=== PATIENT | female | born 1995 | race African-American/Black ===

== ENCOUNTER → 2025-08-07 11:38 | Outpatient (CLI) | payer OTHER, SELFPAY ==
[2025-08-07 13:56] LABS: Hematocrit 33.8 % (36-46); Hemoglobin 11.7 g/dL (12.0-16.0)
[2025-08-07 14:20] LABS: GTT (PREG) 1 Hour PP 50gm Dose 99 mg/dL (76-139)
== END ==
PROVIDERS: Referring Provider Family Medicine; Visit Provider Family Medicine
DX: Z34.80 Encounter for supervision of other normal pregnancy, unspecified trimester (principal)
CPT/HCPCS: 36415; 82950; 85014; 85018; 86850; 86900; 86901

== ENCOUNTER → 2025-09-20 14:14 | Outpatient (CLI) | payer OTHER, SELFPAY ==
--- NOTE | 2025-09-20 14:15 | DI.US.S_ITS ---
PROCEDURE: US OB LIMITED INDICATIONS: (EFW, ROEL) for polyhydramnios OUTSIDE/PRIOR DATING DATA: Working DESHAWN: 10/25/2025 TECHNIQUE: Real-time scanning was performed of the fetus, with image documentation and biometric measurements. Biophysical profile was also obtained. Endovaginal scanning: Not performed COMPARISON: None. FINDINGS: General: A single living intrauterine gestation is present. Presentation: Vertex. Placenta: Placental position is fundal , without previa. Amniotic fluid index: 4.7 cm, normal range is 5-24 cm. Single deepest vertical pocket is 2.4 cm. heart rate: 127 through 140 beats per minute. Maternal cervical canal: 3.0 cm long. Normal lower limit is 2.5 cm. biometrics: Biparietal diameter: 8.9 cm, 36 weeks 0 days Head circumference: 32.8 cm, 37 weeks 2 days Abdominal circumference: 32.5 cm, 36 weeks 3 days Femur length: 6.6 cm, 33 weeks 6 days Clinically estimated gestational age: 35 weeks 0 days Composite gestational age from present scan: 35 weeks 6 days Estimated weight and percentile: 2773 g, 70 percentile Biophysical profile: Tone: 0 points. Movement: 2 points. Respiration: 2 points. Largest pocket of fluid: 2 points. Umbilical artery Doppler: Not requested IMPRESSION: Single living intrauterine at 35 weeks 0 days, DESHAWN of 10/25/2025. Estimated weight of 2773 g, 70 percentile. ROEL of 4.7 cm, deepest pocket of 2.4 cm. BPP 6 of 8. Results transmitted to ordering provider at time of exam. We strive to produce accurate, complete, and clear reports of imaging services. To assist us in improving patient care, this report was composed using standard report templates and voice recognition software. Therefore, it may contain abnormal punctuation, insertions and/or omissions. Occasional wrong-word or sound-alike substitutions may occur. Though we review the report and make efforts to correct it, we do recommend that the report be read carefully in proper context to recognize any text inaccuracies. Dictated by: Wallace Archer M.D. on 09/21/2025 at 10:15 Approved by: Wallace Archer M.D. on 09/21/2025 at 10:17
== END ==
PROVIDERS: Referring Provider Family Medicine; Visit Provider Family Medicine
DX: O40.3XX0 Polyhydramnios, third trimester, not applicable or unspecified (principal); Z3A.35 35 weeks gestation of pregnancy
CPT/HCPCS: 76815; 76819

== ENCOUNTER 2025-09-20 15:49 | Outpatient (CLI) | payer OTHER, SELFPAY ==
--- NOTE | 2025-09-20 17:36 | PM.OBTRLD ---
Visit Information Visit Information Date of evaluation: 09/20/25 Primary OB Provider: Jelani Jacob Reason for Evaluation: Yes non-stress test non-stress test reason: other (low ROEL) Comments/Additional reasons for admission: 30yo at [place] 35+0 by 1st tri US. Uncomplicated course aside from report of polyhydramnios prior to transferring care to our facility. 1h GTT normal x2. Was at US for ROEL and growth US, ROEL noted to be 4.7cm by tech. BPP was then performed with score 4/8 (0 points for fluid and tone). Sent here for NST to determine overall BPP and plan of care. Endorses vigorous movement. Some question of leakage of fluid over past few days. No vaginal bleeding or cramping/contractions. CFDNA ([facility]) at previous facility, low-risk male. FORMERLY [facility] Medical History (Updated 09/20/25 @ 17:53 by Jelani Jacob MD) Lumbar stress fracture Surgical History (Updated 08/01/25 @ 10:40 by Chhaya Santos RN) [place] teeth extracted H/O oral surgery (~2011) S/P ACL repair (~2013) Family History (Updated 08/01/25 @ 10:50 by Chhaya Santos RN) Mother Thyroid disease Hypertension Sleep apnea Father Sleep apnea Grandmother Hypertension Lupus Diabetes mellitus Grandmother Hypertension Aunt Breast cancer Family/Other Breast cancer Social History marital status: number of children: 1 household members: spouse and children lives independently: Yes caregiver/support person: Yes [facility] pets and animals: No education level: college (bachelor's degree) occupational status: unemployed brooks/religious: Congregational special brooks needs: No travel history: recent ([place]) seatbelt use: always helmet use: Yes water heater temp set < 120 deg: No working smoke detector in home: Yes fire extinguisher in home: Yes carbon monox detector in home: Yes firearms in home: No do you feel safe at home: Yes Tobacco: How many years used: 3 second hand exposure: Yes ( vapes outside) alcohol intake: former (rarely when not ) substance use type: does not use during the past year weight has: other (back to pre- weight at conception) well-balanced diet: rarely or never daily servings fruits/ve-1 (1-2) caffeine: Yes (minimal) Type(s) of exercise: walking and weight lifting frequency: 1-2 times per week (2-3) Review of Systems Review of Systems ROS: Yes All systems reviewed with the patient and are negative except as otherwise documented Exam Narrative Exam Narrative: General: Well-nourished, no distress HEENT: NC/AT, EOMI, moist mucous membranes CV: RRR, normal S1 S2, no m/g/r Resp: CTAB Abd: Gravid, soft, NTND, +BS Ext: Full ROM, no edema Skin: No rash or lesions Neuro: A&O x3, normal tone, no focal deficits Objective Imaging US OB: My impression: SIUP in cephalic position Placenta in fundal position BPD 36w0d HC 37w2d AC 36w3d FL 33w6d EFW 2773 g (6lb 2oz), EFW% 70%ile Clinical age 35w0d US age 35w6d Q1 2.24 cm Q2 2.48 cm Q3 0.00 cm Q4 0.00 cm Total 4.7 cm FHR 140 bpm Evaluation Evaluation Baseline heart rate: 130 Variability: Moderate (6-25) monitor accelerations: Present Monitor Decelerations: Absent Category of Tracing: Reactive Status: Category l Non-invasive Membranes Rupture Test: negative Diagnosis, Plan/Disposition Final Diagnosis (1) Oligohydramnios: Status: Acute (2) 35 weeks gestation of : Status: Acute Plan/Disposition Plan: 30-year-old [place] 35+0 weeks. BPP 6/10 equivocal with 2 points off each for fluid and tone. SDP > 2cm, however 2 quadrants without appreciable fluid. Doubt ROM as Amnisure negative. NST reactive and mother feels baby moving normally, movements in maternal abdomen visible to naked eye. We will repeat BP in 24 hours due to combination of oligohydramnios and equivocal BPP score concerning for increased risk of demise ( within 7 days). Management will be based upon the repeat results. If the BPP of 6/10 persists, delivery will be indicated given late gestational age is sufficiently advanced to sustain extrauterine life. If the BPP score reverts to normal (>=8/10) then will continue routine clinical surveillance as appropriate for idiopathic oligohydramnios. Patient instructed hydrate vigorously and return tomorrow for repeat evaluation. Additional return precautions provided for any signs of labor or distress. OB Disposition: home
== END 2025-09-20 17:35 | disposition home or self-care (01) ==
LOC: LABOR 15:52 → OB 09-23 08:37
PROVIDERS: Referring Provider Family Medicine; Visit Provider Family Medicine
DX: O41.03X0 Oligohydramnios, third trimester, not applicable or unspecified (principal); Z3A.35 35 weeks gestation of pregnancy
CPT/HCPCS: 59025; 59050; 76815; 76819; 84112; G0378; G0379

== ENCOUNTER 2025-09-21 13:16 | Outpatient (CLI) | payer OTHER, SELFPAY ==
--- NOTE | 2025-09-21 13:21 | DI.US.S_ITS ---
PROCEDURE: US OB BIOPHYSICAL PROFILE INDICATIONS: low ROEL OUTSIDE/PRIOR DATING DATA: Last menstrual period (LMP): Not reported. LMP-based estimated date of delivery (DESHAWN): 10/25/2025 First dating scan (date and location): 09/20/2025. Estimated date of delivery (DESHAWN) from first dating scan: 10/25/2025 TECHNIQUE: Real-time scanning was performed of the fetus for biophysical profile, with image documentation. Color and pulse Doppler interrogation was also performed of the umbilical artery near its insertion into the placenta. Endovaginal scanning: Not performed COMPARISON: None. FINDINGS: General: A single living intrauterine gestation is present. Presentation: Vertex. Placenta: Placental position is frontal , without previa. Amniotic fluid index: 11 cm, normal range is 5-24 cm. Single deepest vertical pocket is 6.1 cm. heart rate: 135 beats per minute. Maternal cervical canal: Not measured cm long. Biophysical profile: Tone: 2 points. Movement: 2 points. Respiration: 2 points. Largest pocket of fluid: 2 points. IMPRESSION: Live intrauterine with a biophysical profile score of 8 ROEL of 11 cm with single deepest pocket measuring 6.1 cm We strive to produce accurate, complete, and clear reports of imaging services. To assist us in improving patient care, this report was composed using standard report templates and voice recognition software. Therefore, it may contain abnormal punctuation, insertions and/or omissions. Occasional wrong-word or sound-alike substitutions may occur. Though we review the report and make efforts to correct it, we do recommend that the report be read carefully in proper context to recognize any text inaccuracies. Dictated by: Allen Dempsey M.D. on 09/21/2025 at 13:05 Approved by: Allen Dempsey M.D. on 09/21/2025 at 13:09
--- NOTE | 2025-09-21 14:35 | PM.OBTRLD ---
Visit Information Visit Information Date of evaluation: 09/21/25 Primary OB Provider: Jelani Jacob Reason for Evaluation: Yes non-stress test non-stress test reason: other (low ROEL) Comments/Additional reasons for admission: 30yo at [place] 35+1 by 1st tri US. Uncomplicated course aside from report of polyhydramnios prior to transferring care to our facility. 1h GTT normal x2. ROEL noted to be 4.7cm during testing yesterday. BPP was then performed with score 6/10 (0 points for fluid and tone), with the caveat that mother felt normal movement. Repeat BPP indicated due to equivocal score in combination with oligohydramnios. Today patient endorses normal movement. Denies vaginal bleeding, leakage of fluid, contractions. [facility]LY [facility] Medical History (Updated 09/21/25 @ 14:41 by Jelani Jacob MD) Lumbar stress fracture Surgical History (Updated 08/01/25 @ 10:40 by Chhaya Santos RN) [place] teeth extracted H/O oral surgery (~2011) S/P ACL repair (~2013) Family History (Updated 08/01/25 @ 10:50 by Chhaya Santos RN) Mother Thyroid disease Hypertension Sleep apnea Father Sleep apnea Grandmother Hypertension Lupus Diabetes mellitus Grandmother Hypertension Aunt Breast cancer Family/Other Breast cancer Social History marital status: number of children: 1 household members: spouse and children lives independently: Yes caregiver/support person: Yes housing: [facility] pets and animals: No education level: college (bachelor's degree) occupational status: unemployed brooks/christianity: Yarsani special brooks needs: No travel history: recent ([place]) seatbelt use: always helmet use: Yes water heater temp set < 120 deg: No working smoke detector in home: Yes fire extinguisher in home: Yes carbon monox detector in home: Yes firearms in home: No do you feel safe at home: Yes Tobacco: How many years used: 3 second hand exposure: Yes ( vapes outside) alcohol intake: former (rarely when not ) substance use type: does not use during the past year weight has: other (back to pre- weight at conception) well-balanced diet: rarely or never daily servings fruits/ve-1 (1-2) caffeine: Yes (minimal) Type(s) of exercise: walking and weight lifting frequency: 1-2 times per week (2-3) Objective Imaging US OB: Radiologist's impression: US OB BIOPHYSICAL PROFILE INDICATIONS: low ROEL OUTSIDE/PRIOR DATING DATA: Last menstrual period (LMP): Not reported. LMP-based estimated date of delivery (DESHAWN): 10/25/2025 First dating scan (date and location): 09/20/2025. Estimated date of delivery (DESHAWN) from first dating scan: 10/25/2025 TECHNIQUE: Real-time scanning was performed of the fetus for biophysical profile, with image documentation. Color and pulse Doppler interrogation was also performed of the umbilical artery near its insertion into the placenta. Endovaginal scanning: Not performed COMPARISON: None. FINDINGS: General: A single living intrauterine gestation is present. Presentation: Vertex. Placenta: Placental position is frontal , without previa. Amniotic fluid index: 11 cm, normal range is 5-24 cm. Single deepest vertical pocket is 6.1 cm. heart rate: 135 beats per minute. Maternal cervical canal: Not measured cm long. Biophysical profile: Tone: 2 points. Movement: 2 points. Respiration: 2 points. Largest pocket of fluid: 2 points. IMPRESSION: Live intrauterine with a biophysical profile score of 8 ROEL of 11 cm with single deepest pocket measuring 6.1 cm We strive to produce accurate, complete, and clear reports of imaging services. To assist us in improving patient care, this report was composed using standard report templates and voice recognition software. Therefore, it may contain abnormal punctuation, insertions and/or omissions. Occasional wrong-word or sound-alike substitutions may occur. Though we review the report and make efforts to correct it, we do recommend that the report be read carefully in proper context to recognize any text inaccuracies. Dictated by: Allen Dempsey M.D. on 09/21/2025 at 13:05 Approved by: Allen Dempsey M.D. on 09/21/2025 at 13:09 Evaluation Evaluation Baseline heart rate: 130 Variability: Moderate (6-25) monitor accelerations: Present Monitor Decelerations: Absent Category of Tracing: Reactive Status: Category l Diagnosis, Plan/Disposition Final Diagnosis (1) 35 weeks gestation of : Status: Acute (2) Encounter for screening: Status: Acute Plan/Disposition Plan: 30-year-old [place] 35+1 weeks. NST reactive with category 1 strip. BPP 08/16 with ROEL 11cm reassuring for well-being. Follow-up this week for routine care. OB Disposition: home
== END 2025-09-21 14:35 | disposition home or self-care (01) ==
LOC: OB 09-23 08:38
PROVIDERS: Referring Provider Family Medicine; Visit Provider Family Medicine
DX: O41.03X0 Oligohydramnios, third trimester, not applicable or unspecified (principal); Z3A.35 35 weeks gestation of pregnancy
CPT/HCPCS: 59025; 76819; G0378; G0379

== ENCOUNTER → 2025-09-27 10:54 | Outpatient (CLI) | payer OTHER, SELFPAY ==
[2025-09-29 14:11] LABS: Strep Grp B PCR NEG for Grp B Strep
== END ==
PROVIDERS: Visit Provider Family Medicine
DX: Z34.93 Encounter for supervision of normal pregnancy, unspecified, third trimester (principal); Z3A.36 36 weeks gestation of pregnancy
CPT/HCPCS: 87653

== ENCOUNTER 2025-10-17 10:38 | Inpatient (IN) | payer OTHER, SELFPAY ==
[2025-10-17 12:04] LABS: Add Manual Diff / Slide Review NO; Hematocrit 35.3 % (36-46); Hemoglobin 12.4 g/dL (12.0-16.0); Lymphocytes Absolute Auto 1700 /uL (1100-4500); Mean Corpuscular HGB Conc 35.0 % (30-36); Mean Corpuscular Hemoglobin 31.6 PG (26-34); Mean Corpuscular Volume 90.3 fL (80-100); Platelet Count 161 X10^3/uL (150-400)
[2025-10-17 12:15] LABS: Alanine Aminotransferase 26 IU/L (<35); Albumin 3.5 g/dL (3.5-5.0); Albumin Globulin Ratio 1.1 (1.0-2.8); Alkaline Phosphatase 144 U/L (38-126); Blood Urea Nitrogen 6 mg/dL (7-17); Calcium 8.9 mg/dL (8.4-10.2); Carbon Dioxide 22 mmol/L (22-32); Chloride 107 mmol/L (98-107); Estimated Glomerular Filt Rate > 60 mL/min (>60); Globulin 3.1 g/dL (1.7-4.1); Glucose 89 mg/dL (70-99); HEMOLYSIS < 15 (0-50); Potassium 4.4 mmol/L (3.4-5.1); Sodium 136 mmol/L (137-145); Total Protein 6.6 g/dL (6.3-8.2)
[2025-10-17] MEDS: OXYTOCIN PREMIX 30 UNIT/500 ML PLAST..BAG 334 UNIT IV (12:20)
[2025-10-17] MEDS: LIDOCAINE 1% 20 ML INJ (12:20)
--- NOTE | 2025-10-17 13:12 | PM.OBHP.IH.1 ---
OB HPI Date/Time Date of admission: 10/17/25 History of Present Condition Chief complaint: NST DESHAWN Calculator Estimated Delivery Date Method Current WG Current Estimate 10/25/25 Manual 38w 6d Estimated Gestational Age (weeks): 38+6 : 2 Para: 1 Narrative: 30-year-old at [place] 38+6 weeks presenting for labor. Reports painful contractions starting at 5:00 a.m. this morning becoming more intense. Endorses normal movement. Denies vaginal bleeding or denies leakage of fluid. course notable for late transfer at 28 weeks, idiopathic polyhydramnios which resolved spontaneously. care: good care Dating criteria OB: based on 1st trimester US only Ultrasounds: normal 1st trimester US, normal mid trimester US and abnormal US findings (polyhydramnios (resolved)) Preadmission Labs Last OB Lab Results: Blood Type AB Positive 08/07/25, 11:53 Antibody Screen Negative 08/07/25, 11:53 Hct, (36-46) 35.3 % L Today, 11:45 Hgb, (12.0-16.0) 12.4 g/dL Today, 11:45 Glucose 1 Hr 50 gm, (76-139) 99 mg/dL 08/07/25, 11:53 Group B Strep (PCR) Neg for grp b strep 09/27/25, 10:54 Prior (ies) Past Pregnancies Del. Date GA/Weeks Labor Lgth Wt Sex Route Outcome Anesthesia Place Delv Breastfeed Preg Comp Name 01/15/23 40.4 23 7 lb 12 oz Female vaginal live - full term none [place] [employer] [place] 22 months none [place] Evaluation Evaluation Baseline heart rate: 130 Variability: Moderate (6-25) monitor accelerations: Present Monitor Decelerations: Variable Contraction Frequency (minutes): 3 Uterine Contraction Intensity: Moderate Category of Tracing: Reactive Status: Category l Dilation (cm): 10 Effacement (%): 100 station: 0 Comments: SROM w/clear fluid during exam [facility] Medical History (Updated 09/27/25 @ 11:03 by Jelani Jacob MD) Lumbar stress fracture Surgical History (Updated 08/01/25 @ 10:40 by Chhaya Santos RN) [place] teeth extracted H/O oral surgery (~2011) S/P ACL repair (~2013) Family History (Updated 08/01/25 @ 10:50 by Chhaya Santos RN) Mother Thyroid disease Hypertension Sleep apnea Father Sleep apnea Grandmother Hypertension Lupus Diabetes mellitus Grandmother Hypertension Aunt Breast cancer Family/Other Breast cancer Social History marital status: number of children: 1 household members: spouse and children lives independently: Yes caregiver/support person: Yes [facility]: [facility] pets and animals: No education level: college (bachelor's degree) occupational status: unemployed brooks/jain: Nondenominational special brooks needs: No travel history: recent ([place]) seatbelt use: always helmet use: Yes water heater temp set < 120 deg: No working smoke detector in home: Yes fire extinguisher in home: Yes carbon monox detector in home: Yes firearms in home: No do you feel safe at home: Yes Tobacco: How many years used: 3 second hand exposure: Yes ( vapes outside) alcohol intake: former (rarely when not ) substance use type: does not use during the past year weight has: other (back to pre- weight at conception) well-balanced diet: rarely or never daily servings fruits/ve-1 (1-2) caffeine: Yes (minimal) Type(s) of exercise: walking and weight lifting frequency: 1-2 times per week (2-3) Meds Home Medications and Allergies Home Medications ?Medication ?Instructions ?Recorded ?Confirmed ?Type mecobalamin (vitamin B12) 1,000 1,000 mcg PO DAILY 08/01/25 08/01/25 History mcg chewable tablet vit no.95-ferrous 1 tab PO DAILY 08/01/25 08/01/25 History fumarate 28 mg-folic acid 800 mcg tablet ( Multivitamins) Allergies Allergy/AdvReac Type Severity Reaction Status Date / Time amoxicillin Allergy Mild Hives Verified 10/02/25 09:38 Objective Labs 10/17/25 11:45 10/17/25 11:45 Labs: Laboratory Results - last 24 hr 10/17/25 11:45 WBC 9.4 RBC 3.91 L Hgb 12.4 Hct 35.3 L MCV 90.3 MCH 31.6 MCHC 35.0 RDW 11.9 Plt Count 161 Neut % (Auto) 74.8 Lymph % (Auto) 17.8 L [place] % (Auto) 6.5 Eos % (Auto) 0.5 L Baso % (Auto) 0.4 Neut # (Auto) 7100 H Lymph # (Auto) 1700 [place] # (Auto) 600 Eos # (Auto) 0 Baso # (Auto) 0 Sodium 136 L Potassium 4.4 Chloride 107 Carbon Dioxide 22 BUN 6 L Creatinine 0.78 Estimated GFR > 60 BUN/Creatinine Ratio 7.7 Glucose 89 Calcium 8.9 Total Bilirubin 0.8 AST 30 ALT 26 Alkaline Phosphatase 144 H Total Protein 6.6 Albumin 3.5 Globulin 3.1 Albumin/Globulin Ratio 1.1 Assessment and Plan Assessment and Plan Assessment and Plan narrative: 30-year-old at [place] 38+6 weeks presenting for labor. -admit to L&D -GBS negative, ppx not indicated -pain control prn if desired by patient -PPH risk low -vaginal delivery imminent Time-Based Coding :: 25 minutes spent with patient and on the chart (including review of chart, obtaining history, exam, reviewing outside data, placing orders, documenting exam and treatment plan, and counseling patient) on 10/17/2025.
--- NOTE | 2025-10-17 13:26 | PM.OBPRVD ---
Events: Polyhydramnios Labor & Delivery Delivery date: 10/17/25 Delivery Time: 12:14 Intrapartal Events: Acceleration and Deceleration Delivery monitor: external FHT and external uterine Route of delivery: L&D Laceration Description: Perineal - 2nd Degree Delivery repair: vicryl (3-0) Estimated blood loss (mL): 75 Anesthesia Type: None Narrative: Patient fully dilated at 1158 and began pushing at 1205. Spontaneous vaginal delivery of a viable male in the OA position occurred at 1214. Loose nuchal x1 that was easily reduced. The was suctioned and stimulated at the perineum, and gave appropriate cry with movement of all extremities. Delayed cord clamping was observed for >60 seconds until the cord stopped pulsing per maternal request. The cord was clamped and cut, and the handed to mother for skin to skin. Cord blood and segment were obtained. The placenta was delivered without difficulty using gentle cord traction and found to be intact with a 3-vessel cord. After fundal massage the uterus was firm and bleeding stopped. The vagina and cervix were examined for lacerations. A second-degree perineal laceration was noted and repaired with 3-0 Vicryl suture in the usual fashion. Patient stable with rooming in, bonding skin to skin and attempting to breastfeed. Baby 1: Infant gender: Male Presentation: vertex Position: Right Occiput Transverse Placenta delivery description: Spontaneous Cord Vessel Description: 3 Vessels score (1 min): 9 score (5 min): 9 weight: 8 lb 10.697 oz Plan for aftercare: Routine care
[2025-10-17] MEDS: DERMOPLAST SPRAY 20% 60 ML 1 SPRAY TOP (13:33)
[2025-10-17] MEDS: KETOROLAC 30 MG/ML VIAL IV (13:33)
[2025-10-17] MEDS: LANOLIN OINT 7 GM 1 APPLIC TOP (13:34)
[2025-10-17] MEDS: ONDANSETRON 4 MG/2 ML INJ IV (13:42)
[2025-10-17] MEDS: ACETAMINOPHEN 325 MG TABLET 650 MG PO ×2 (14:18→19:51)
[2025-10-17 18:48] VITALS: BP 120/70
[2025-10-17 19:42] VITALS: TEMP 36.2
[2025-10-17] MEDS: IBUPROFEN 600 MG TABLET PO (19:42)
[2025-10-17 19:51] VITALS: TEMP 36.1
[2025-10-17] MEDS: LORATADINE 10 MG TABLET PO (20:53)
[2025-10-17 21:32] VITALS: TEMP 36.6
[2025-10-18] MEDS: ACETAMINOPHEN 325 MG TABLET 650 MG PO ×3 (01:30→15:05)
[2025-10-18] MEDS: IBUPROFEN 600 MG TABLET PO ×3 (01:30→15:07)
--- NOTE | 2025-10-18 10:48 | P.DS_ITS ---
Discharge Providers Provider Date of admission: 10/17/25 10:38 Discharge Date: 10/18/25 Primary care physician: Fan QUINTANILLA Provider Consults: 10/17/25 11:23 Consult to Anesthesiology Urgent Comment: Consulting Provider: Chichi Arshad Reason for consultation: Epidural 10/17/25 13:18 Consult to [employer] Home [employer] Teacher Routine Comment: Discharge provider: Jelani Jacob MD Summary Hospital Course Date Patient Seen: 10/18/25 Diagnoses: # # mother Hospital Course: Admitted for normal labor on 10/17/2025. Progressed adequately without augmentation to complete dilation over the course of 7 hours. She had an uncomplicated of a live male infant with a second degree perineal laceration that was repaired. Her course was uncomplicated. At discharge patient is ambulating well, tolerating normal diet, breast-feeding without difficulty, and pain is adequately controlled. She reports bleeding is similar to normal menses. Peripartum Data Infant Delivery Method: Natural Vaginal Laceration Description: Perineal - 2nd Degree complications: none 1: Gender: Male Disposition of : home Discharge Diagnosis (1) (spontaneous vaginal delivery): Status: Acute (2) Second degree perineal laceration: Status: Acute (3) Mother currently breast-feeding: Status: Acute Status at Discharge Cognitive/behavioral status at discharge: oriented Functional status at discharge: independent ambulation Overall status at discharge: patient is progressing back to baseline Time Spent with Patient Time spent: Less than 30 minutes Objective Labs 10/17/25 11:45 10/17/25 11:45 Labs: Laboratory Results - last 24 hr 10/17/25 11:45 WBC 9.4 RBC 3.91 L Hgb 12.4 Hct 35.3 L MCV 90.3 MCH 31.6 MCHC 35.0 RDW 11.9 Plt Count 161 Neut % (Auto) 74.8 Lymph % (Auto) 17.8 L [place] % (Auto) 6.5 Eos % (Auto) 0.5 L Baso % (Auto) 0.4 Neut # (Auto) 7100 H Lymph # (Auto) 1700 [place] # (Auto) 600 Eos # (Auto) 0 Baso # (Auto) 0 Sodium 136 L Potassium 4.4 Chloride 107 Carbon Dioxide 22 BUN 6 L Creatinine 0.78 Estimated GFR > 60 BUN/Creatinine Ratio 7.7 Glucose 89 Calcium 8.9 Total Bilirubin 0.8 AST 30 ALT 26 Alkaline Phosphatase 144 H Total Protein 6.6 Albumin 3.5 Globulin 3.1 Albumin/Globulin Ratio 1.1 Blood Type Cancelled Rho(D) Type Cancelled Antibody Screen Cancelled Exam Narrative Exam Narrative: General: Well-appearing, well-nourished, no distress HEENT: Moist mucous membranes, no pallor CV: Regular rate and rhythm, no murmur auscultated Resp: CTAB, comfortable work of breathing Abdomen: Soft, bowel sounds present, fundus firm below umbilicus with appropriate tenderness Extremities: No edema, no calf tenderness or evidence of DVT Discharge Plan Discharge Plan Patient Disposition: Home Discharge orders & Medications Prescriptions: New acetaminophen 325 mg Tablet 650 mg PO Q6H PRN (Reason: Pain, Mild (1-3)) Qty: 60 1RF Dermoplast (with menthol) 20-0.5 % Aerosol 1 spray topical Q1HR PRN (Reason: Pain, Moderate (4-6)) Qty: 78 1RF ibuprofen 600 mg Tablet 600 mg PO Q6H Qty: 60 0RF Purelan Cream 1 applic topical PRN PRN (Reason: Sore Nipples) Qty: 7 6RF polyethylene glycol 3350 17 gram/dose powder 17 g PO DAILY Qty: 510 1RF oxycodone 5 mg capsule 5 mg PO Q6H PRN (Reason: pain) Qty: 15 0RF Continued PNV no.95-ferrous fumarate-FA [ Multivitamins] 28 mg iron- 800 mcg tablet 1 tab PO DAILY mecobalamin (vitamin B12) 1,000 mcg tablet,chewable 1,000 mcg PO DAILY Discontinued oxycodone 5 mg tablet 5 mg PO Q6H PRN (Reason: Pain, Severe (7-10)) Qty: 15 0RF Follow up/Referrals: Jelani Jacob MD [Physician, Family Practice] - 12/03/25 3:30 pm Provider,Fan QUINTANILLA [Primary Care Provider, Family Practice] Visit Report/Discharge Packet Stand Alone Forms: Discharge: Care, Patient Portal/API, Stroke Signs & Symptoms Discharge Data Primary Care Provider: Fan Sage Discharges patient from system. Discharge Date/Time: 10/18/25 16:30
[2025-10-18] MEDS: DOCUSATE 100 MG CAPSULE PO (12:14)
[2025-10-18] MEDS: DERMOPLAST SPRAY 20% 60 ML 1 SPRAY TOP (13:43)
[2025-10-18 15:39] VITALS: BP 116/73; PULSE 61; RESP 16; TEMP 36.3
== END 2025-10-18 16:30 | disposition home or self-care (01) | DRG 807 ==
LOC: AC 10:51 → LABOR 11:46 → AC 13:13 → LABOR 13:13
PROVIDERS: Admitting Provider Family Medicine; Referring Provider Family Medicine; Visit Provider Family Medicine
DX: O76 Abnormality in fetal heart rate and rhythm complicating labor and delivery (principal); Z37.0 Single live birth; O70.1 Second degree perineal laceration during delivery; Z3A.38 38 weeks gestation of pregnancy
CPT/HCPCS: 59050; 80053; 85025; G0379; J1885; J2405; J2590

== ENCOUNTER → 2025-11-06 15:30 | Outpatient (CLI) | payer OTHER, SELFPAY ==
--- NOTE | 2025-11-06 15:31 | DI.US.S_ITS ---
PROCEDURE: US PELVIC COMPLETE INDICATIONS: PAIN 20 DAYS POST TECHNIQUE: Real-time scanning was performed of the pelvic organs, with image documentation. Additional endovaginal scanning was recommended but patient declined. COMPARISON: None. FINDINGS: Uterus: Uterus is anteverted and normal in size at 8.9 x 6.3 x 8.8 cm. The myometrium is homogeneous. The endometrium measures 10 mm combined thickness. No sonographic evidence to suggest retained products of conception. Ovaries: The right ovary measures 2.4 x 1.0 x 1.4 cm, with a calculated ovarian volume of 1.7 cc. The left ovary was not visualized on this exam. The right ovary has a normal sonographic appearance. Less than 12 follicles can be seen in the right ovary. No adnexal masses are seen. Other: No pathologic free abdominal or pelvic fluid. IMPRESSION: Unremarkable sonographic appearance of the post gravid uterus without evidence for retained products of conception. Normal right ovary. Left ovary not visualized on this exam. We strive to produce accurate, complete, and clear reports of imaging services. To assist us in improving patient care, this report was composed using standard report templates and voice recognition software. Therefore, it may contain abnormal punctuation, insertions and/or omissions. Occasional wrong-word or sound-alike substitutions may occur. Though we review the report and make efforts to correct it, we do recommend that the report be read carefully in proper context to recognize any text inaccuracies. Dictated by: Wade Heredia M.D. on 11/08/2025 at 12:14 Approved by: Wade Heredia M.D. on 11/08/2025 at 12:18
== END ==
PROVIDERS: Referring Provider Family Medicine; Visit Provider Family Medicine
DX: O90.89 Other complications of the puerperium, not elsewhere classified (principal); R52 Pain, unspecified
CPT/HCPCS: 76856